=== PATIENT | male | born 1985 | race Caucasian/White ===

== ENCOUNTER 2019-05-15 12:25 | Inpatient (IN) | payer BC ==
[2019-05-15] MEDS ORDERED: SODIUM CHLORIDE 0.9% 1,000 ML IV STA (13:06)
--- NOTE | 2019-05-15 13:11 | ED ---
General Adult HPI - General Chief complaint: Chest Pain Stated complaint: Chest pain, weakness Time Seen by Provider: 05/15/19 12:45 Source: patient, RN notes reviewed, old records reviewed Mode of arrival: ambulatory Limitations: no limitations - History of Present Illness Initial comments: This is a 33-year-old male with past medical history significant for hyperthyroidism. Patient presents emergency department because last night at 11:00 he woke up and was having significant chest pain that made him nauseated and diaphoretic. Patient states it lasts 20 minutes and then subsided. Patient states it occurred every 2 hours until this morning. Patient states he never actually vomited but he felt like he was given vomit. Patient denies any fever chills or cough. Patient denies any headache patient denies lightheadedness or dizziness. Patient denies any symptoms currently. Patient did feel as though his heart was racing a little. Patient denies any swelling to the legs or any calf tenderness. Patient denies any back pain. Patient denies any radiation of the pain in his chest.Patient states she was somewhat short of breath when the pain is occurring - Related Data Home Medications Medication Instructions Recorded Confirmed Cholecalciferol [Vitamin D3 (25 1,000 unit PO DAILY 05/15/19 05/15/19 Mcg = 1000 Iu)] Ginkgo Biloba [place] Extract [Ginkgo] 60 mg PO DAILY 05/15/19 05/15/19 Insulin Aspart (For Pump) [NovoLOG 0.01 unit SQ-PUMP CONTINUOUS 05/15/19 05/15/19 (For Pump)] Methimazole 10 mg PO DAILY 05/15/19 05/15/19 [place]-3 Fatty Acids/Fish Oil [Fish 1 cap PO DAILY 05/15/19 05/15/19 Oil 1,000 mg Softgel] Allergies Allergy/AdvReac Type Severity Reaction Status Date / Time No Known Allergies Allergy Verified 05/15/19 14:09 Review of Systems ROS Statement: Those systems with pertinent positive or pertinent negative responses have been documented in the HPI. ROS Other: All systems not noted in ROS Statement are negative. Past Medical History Past Medical History: Diabetes Mellitus, Thyroid Disorder History of Any Multi-Drug Resistant Organisms: None Reported Past Surgical History: Orthopedic Surgery Additional Past Surgical History / Comment(s): hand Smoking Status: Current every day smoker Past Alcohol Use History: Rare Past Drug Use History: None Reported, Marijuana General Exam - General Exam Comments Initial Comments: GENERAL: Patient is well-developed and well-nourished. Patient is nontoxic and well- hydrated and is in mild distress. ENT: Neck is soft and supple. No significant lymphadenopathy is noted. Oropharynx is clear. Moist mucous membranes. Neck has full range of motion without eliciting any pain. EYES: The sclera were anicteric and conjunctiva were pink and moist. Extraocular movements were intact and pupils were equal round and reactive to light. Eyelids were unremarkable. PULMONARY: Unlabored respirations. Good breath sounds bilaterally. No audible rales rho nchi or wheezing was noted. CARDIOVASCULAR: Patient is tachycardic and regular about 120 beats a minute ABDOMEN: Soft and nontender with normal bowel sounds. No palpable organomegaly was noted. There is no palpable pulsatile mass. SKIN: Skin is clear with no lesions or rashes and otherwise unremarkable. NEUROLOGIC: Patient is alert and oriented x3. Cranial nerves II through XII are grossly intact. Motor and sensory are also intact. Normal speech, volume and content. Symmetrical smile. MUSCULOSKELETAL: Normal extremities with adequate strength and full range of motion. No lower extremity swelling or edema. No calf tenderness. LYMPHATICS: No significant lymphadenopathy is noted PSYCHIATRIC: Normal psychiatric evaluation. Limitations: no limitations Course Vital Signs 05/15/19 05/15/19 05/15/19 12:42 12:47 13:00 Temperature 98.9 F Pulse Rate 118 H 114 H 102 H Pulse Rate [ [employer] ] Respiratory 19 20 14 Rate Blood Pressure 158/64 158/64 O2 Sat by Pulse 97 96 97 Oximetry 05/15/19 05/15/19 05/15/19 13:23 13:30 14:00 Temperature Pulse Rate 105 H 102 H Pulse Rate [ 115 H [employer] ] Respiratory 20 16 Rate Blood Pressure 123/75 134/67 O2 Sat by Pulse 97 98 Oximetry Medical Decision Making - Medical Decision Making EKG shows sinus tachycardia at 117 bpm LA interval 122 QRS is 70 QT interval 322 QTC is 449. Patient's EKG shows no ST segment elevation or depression. Chest x-ray showed no acute abnormality. Patient's heart rate remained tachycardic. Patient's TSH was essentially 0 and patient's T4 was 3.95. I gave the patient propranolol. I spoke with Dr. Valadez he agreed to admit the patient admitted the patient wrote admitting orders. - Lab Data Result diagrams: 05/15/19 13:02 05/15/19 13:02 Lab Results 05/15/19 05/15/19 05/15/19 Range/Units 13:02 13:02 13:02 WBC 9.8 (3.8-10.6) k/uL RBC 4.35 (4.30-5.90) m/uL Hgb 13.3 (13.0-17.5) gm/dL Hct 39.6 (39.0-53.0) % MCV 91.1 (80.0-100.0) fL MCH 30.5 (25.0-35.0) pg MCHC 33.5 (31.0-37.0) g/dL RDW 12.8 (11.5-15.5) % Plt Count 169 (150-450) k/uL Neutrophils % 85 % Lymphocytes % 9 % Monocytes % 5 % Eosinophils % 0 % Basophils % 0 % Neutrophils # 8.2 H (1.3-7.7) k/uL Lymphocytes # 0.8 L (1.0-4.8) k/uL Monocytes # 0.5 (0-1.0) k/uL Eosinophils # 0.0 (0-0.7) k/uL Basophils # 0.0 (0-0.2) k/uL PT 10.4 (9.0-12.0) sec INR 1.0 (<1.2) APTT 25.9 (22.0-30.0) sec Sodium 135 L (137-145) mmol/L Potassium 4.6 (3.5-5.1) mmol/L Chloride 102 (98-107) mmol/L Carbon Dioxide 23 (22-30) mmol/L Anion Gap 10 mmol/L BUN 17 (9-20) mg/dL Creatinine 0.60 L (0.66-1.25) mg/dL Est GFR (CKD-EPI)AfAm >90 (>60 ml/min/1.73 sqM) Est GFR (CKD-EPI)NonAf >90 (>60 ml/min/1.73 sqM) Glucose 285 H (74-99) mg/dL Calcium 9.4 (8.4-10.2) mg/dL Magnesium 1.4 L (1.6-2.3) mg/dL Total Bilirubin 1.2 (0.2-1.3) mg/dL AST 25 (17-59) U/L ALT 31 (4-49) U/L Alkaline Phosphatase 100 (38-126) U/L Troponin I (0.000-0.034) ng/mL Total Protein 6.2 L (6.3-8.2) g/dL Albumin 3.5 (3.5-5.0) g/dL Amylase <30 L (30-110) U/L Lipase <10 L (23-300) U/L TSH <0.015 L (0.465-4.680) mIU/L Free T4 3.95 H (0.78-2.19) ng/dL 05/15/19 Range/Units 13:02 WBC (3.8-10.6) k/uL RBC (4.30-5.90) m/uL Hgb (13.0-17.5) gm/dL Hct (39.0-53.0) % MCV (80.0-100.0) fL MCH (25.0-35.0) pg MCHC (31.0-37.0) g/dL RDW (11.5-15.5) % Plt Count (150-450) k/uL Neutrophils % % Lymphocytes % % Monocytes % % Eosinophils % % Basophils % % Neutrophils # (1.3-7.7) k/uL Lymphocytes # (1.0-4.8) k/uL Monocytes # (0-1.0) k/uL Eosinophils # (0-0.7) k/uL Basophils # (0-0.2) k/uL PT (9.0-12.0) sec INR (<1.2) APTT (22.0-30.0) sec Sodium (137-145) mmol/L Potassium (3.5-5.1) mmol/L Chloride (98-107) mmol/L Carbon Dioxide (22-30) mmol/L Anion Gap mmol/L BUN (9-20) mg/dL Creatinine (0.66-1.25) mg/dL Est GFR (CKD-EPI)AfAm (>60 ml/min/1.73 sqM) Est GFR (CKD-EPI)NonAf (>60 ml/min/1.73 sqM) Glucose (74-99) mg/dL Calcium (8.4-10.2) mg/dL Magnesium (1.6-2.3) mg/dL Total Bilirubin (0.2-1.3) mg/dL AST (17-59) U/L ALT (4-49) U/L Alkaline Phosphatase (38-126) U/L Troponin I 0.012 (0.000-0.034) ng/mL Total Protein (6.3-8.2) g/dL Albumin (3.5-5.0) g/dL Amylase (30-110) U/L Lipase (23-300) U/L TSH (0.465-4.680) mIU/L Free T4 (0.78-2.19) ng/dL Critical Care Time Critical Care Time: Yes Total Critical Care Time: 35 Disposition Clinical Impression: Chest pain, Hyperthyroidism Disposition: ADMITTED IP TO THIS HOSP Referrals: Leonardo Valadez MD [Primary Care Provider] - 1-2 days Time of Disposition: 15:45
[2019-05-15 13:26] LABS: Basophils % (A) 0 %; Eosinophils % (A) 0 %; HCT 39.6 % (39.0-53.0); HGB 13.3 gm/dL (13.0-17.5); Lymphocytes # (A) 0.8 k/uL (1.0-4.8); Lymphocytes % (A) 9 %; MCH 30.5 pg (25.0-35.0); MCHC 33.5 g/dL (31.0-37.0); MCV 91.1 fL (80.0-100.0); Mean Platelet Volume 8.4; Monocytes # (A) 0.5 k/uL (0-1.0); Monocytes % (A) 5 %; Neutrophils # (A) 8.2 k/uL (1.3-7.7); Neutrophils % (A) 85 %; Platelet Count 169 k/uL (150-450); RBC 4.35 m/uL (4.30-5.90); RDW 12.8 % (11.5-15.5); WBC 9.8 k/uL (3.8-10.6)
[2019-05-15 13:36] LABS: Partial Thromboplastin Time 25.9 sec (22.0-30.0); Prothrombin Time 10.4 sec (9.0-12.0)
[2019-05-15 13:45] LABS: ALT 31 U/L (4-49); AST 25 U/L (17-59); African American GFR (CKD) >90 (>60 ml/min/1.73 sqM); Albumin 3.5 g/dL (3.5-5.0); Alkaline Phosphatase 100 U/L (38-126); Amylase <30 U/L (30-110); Anion Gap 10 mmol/L; Blood Urea Nitrogen 17 mg/dL (9-20); Calcium 9.4 mg/dL (8.4-10.2); Carbon Dioxide 23 mmol/L (22-30); Chloride 102 mmol/L (98-107); Glucose 285 mg/dL (74-99); Magnesium 1.4 mg/dL (1.6-2.3); Non-African American GFR(CKD) >90 (>60 ml/min/1.73 sqM); Potassium 4.6 mmol/L (3.5-5.1); Sodium 135 mmol/L (137-145); Total Bilirubin 1.2 mg/dL (0.2-1.3); Total Protein 6.2 g/dL (6.3-8.2)
[2019-05-15] MEDS ORDERED: MAGNESIUM SULFATE-D5W PMX 1 GM in DEXTROSE/WATER 1 100ML.BAG IVPB ONE (13:53)
--- NOTE | 2019-05-15 14:12 | XR ---
EXAMINATION TYPE: XR chest 2V DATE OF EXAM: 05/15/2019 COMPARISON: NONE HISTORY: Chest pain and shortness of breath TECHNIQUE: Frontal and lateral views of the chest are obtained. FINDINGS: There is no focal air space opacity, pleural effusion, or pneumothorax seen. The cardiac silhouette size is within normal limits. The osseous structures are intact. Minimal degenerative ch abisai of the thoracic spine. IMPRESSION: No acute cardiopulmonary process.
[2019-05-15 14:53] LABS: T4, Free (Free Thyroxine) 3.95 ng/dL (0.78-2.19)
[2019-05-15] MEDS ORDERED: PROPRANOLOL 1 MG/ML 1 ML VIAL IV STA (15:46)
[2019-05-15] MEDS ORDERED: ASPIRIN 81 MG PO STA (15:47)
[2019-05-15 16:04] LABS: Glucose,Whole Blood 274 mg/dL (75-99)
[2019-05-15] MEDS: NITROGLYCERIN OINT 1 INCH/GM PACKET TOPICAL SCH ×2 (16:30→23:55)
[2019-05-15 17:22] LABS: Glucose,Whole Blood 275 mg/dL (75-99)
[2019-05-15] MEDS ORDERED: INSULIN ASPART (NovoLOG) 100 UNIT/ML VIAL SQ SCH (17:30)
[2019-05-15 20:49] LABS: Glucose,Whole Blood 359 mg/dL (75-99)
[2019-05-15] MEDS ORDERED: INSULIN ASPART (NovoLOG) 100 UNIT/ML VIAL SQ PRN (20:57)
[2019-05-15] MEDS ORDERED: INSPUCOR MISCELLANE PRN (20:57)
[2019-05-15] MEDS ORDERED: INSULIN PUMP BASAL RATES 1 EACH MISC MISCELLANE PRN (20:57)
[2019-05-16 05:02] LABS: Cholesterol 92 mg/dL (<200); HDL Cholesterol 27 mg/dL (40-60); LDL Cholesterol,Calculated 46 mg/dL (0-99); Triglycerides 93 mg/dL (<150)
[2019-05-16] MEDS: NITROGLYCERIN OINT 1 INCH/GM PACKET TOPICAL SCH (06:36)
[2019-05-16 06:38] LABS: Glucose,Whole Blood 91 mg/dL (75-99)
--- NOTE | 2019-05-16 07:38 | P.CRDCN ---
History of Present Illness Consult date: 05/16/19 Chief complaint: Chest pain History of present illness: This is a very pleasant 33-year-old gentleman with a past medical history significant for diabetes and smoking presented to the emergency room complaining of chest discomfort. The patient was in his usual state of felt the last night when he woke up from sleep around 11:00 complaining of chest discomfort. The patient describes a discomfort in the mid of the chest, as sharp/dull, without any radiation to the arms or neck or shoulders, and without any associated symptoms. The symptoms lasted for about an hour. No fever or chills or cough and no abdominal discomfort or nausea or vomiting. He came into the emergency room where an EKG showed sinus rhythm with sinus tachycardia and he continues to be in sinus tachycardia. The troponin came in to be unremarkable. The chest x-ray did not show any acute abnormalities. The patient does have diabetes as well as history of smoking. No significant family history of coronary artery disease. At this point I'm going to obtain a d-dimer to rule out PE. If the d- dimer came in to be unremarkable I will schedule the patient to undergo a stress test. Beside that on examination he does have a systolic murmur which I'm going to perform an echocardiogram for further clarification. Past Medical History Past Medical History: Diabetes Mellitus, Thyroid Disorder Additional Past Medical History / Comment(s): IDDM type I with insulin pump, hyperthyroidism. History of Any Multi-Drug Resistant Organisms: None Reported Past Surgical History: Orthopedic Surgery Additional Past Surgical History / Comment(s): R hand Past Anesthesia/Blood Transfusion Reactions: No Reported Reaction Smoking Status: Current every day smoker - Past Family History Father Family Medical History: No Reported History Mother Family Medical History: No Reported History Medications and Allergies Home Medications Medication Instructions Recorded Confirmed Type Cholecalciferol [Vitamin D3 (25 1,000 unit PO DAILY 05/15/19 05/15/19 History Mcg = 1000 Iu)] Ginkgo Biloba [place] Extract [Ginkgo] 60 mg PO DAILY 05/15/19 05/15/19 History Insulin Aspart (For Pump) [NovoLOG 0.01 unit SQ-PUMP CONTINUOUS 05/15/19 05/15/19 History (For Pump)] Methimazole 10 mg PO DAILY 05/15/19 05/15/19 History [place]-3 Fatty Acids/Fish Oil [Fish 1 cap PO DAILY 05/15/19 05/15/19 History Oil 1,000 mg Softgel] Allergies Allergy/AdvReac Type Severity Reaction Status Date / Time No Known Allergies Allergy Verified 05/15/19 14:09 Physical Exam Vitals: Vital Signs Temp Pulse Pulse Resp BP BP Pulse Ox 05/16/19 04:00 98 F 98 16 119/58 95 05/16/19 00:00 98 F 90 138/74 96 05/15/19 20:00 98.6 F 96 18 130/67 95 05/15/19 17:15 98 F 105 H 18 114/58 98 05/15/19 17:02 98.9 F 108 H 18 135/64 97 05/15/19 17:01 108 H 18 135/64 05/15/19 16:30 108 H 18 135/64 05/15/19 16:00 103 H 20 133/74 97 05/15/19 15:30 109 H 16 130/64 98 05/15/19 15:00 107 H 22 125/66 96 05/15/19 14:30 100 20 136/73 98 05/15/19 14:00 102 H 16 134/67 98 05/15/19 13:30 105 H 20 123/75 97 05/15/19 13:23 115 H 05/15/19 13:00 102 H 14 158/64 97 05/15/19 12:47 98.9 F 114 H 20 158/64 96 05/15/19 12:42 118 H 19 97 Intake and Output 05/15/19 05/16/19 05/16/19 22:59 06:59 14:59 Intake Total 500 Balance 500 Intake: Oral 500 Other: Voiding Method Toilet Toilet # Voids 3 Weight 74.843 kg 75 kg - Constitutional General appearance: no acute distress - Respiratory Respiratory: bilateral: CTA - Cardiovascular Rhythm: regular Heart sounds: normal: S1, S2 Abnormal Heart Sounds: systolic murmur Results 05/15/19 13:02 05/15/19 13:02 Cardiac Enzymes 05/15/19 05/15/19 05/15/19 Range/Units 13:02 13:02 18:54 AST 25 (17-59) U/L Troponin I 0.012 <0.012 (0.000-0.034) ng/mL 05/16/19 Range/Units 00:42 AST (17-59) U/L Troponin I <0.012 (0.000-0.034) ng/mL Coagulation 05/15/19 Range/Units 13:02 PT 10.4 (9.0-12.0) sec APTT 25.9 (22.0-30.0) sec Lipids 05/16/19 Range/Units 04:11 Triglycerides 93 (<150) mg/dL Cholesterol 92 (<200) mg/dL HDL Cholesterol 27 L (40-60) mg/dL CBC 05/15/19 Range/Units 13:02 WBC 9.8 (3.8-10.6) k/uL RBC 4.35 (4.30-5.90) m/uL Hgb 13.3 (13.0-17.5) gm/dL Hct 39.6 (39.0-53.0) % Plt Count 169 (150-450) k/uL Comprehensive Metabolic Panel 05/15/19 Range/Units 13:02 Sodium 135 L (137-145) mmol/L Potassium 4.6 (3.5-5.1) mmol/L Chloride 102 (98-107) mmol/L Carbon Dioxide 23 (22-30) mmol/L BUN 17 (9-20) mg/dL Creatinine 0.60 L (0.66-1.25) mg/dL Glucose 285 H (74-99) mg/dL Calcium 9.4 (8.4-10.2) mg/dL AST 25 (17-59) U/L ALT 31 (4-49) U/L Alkaline Phosphatase 100 (38-126) U/L Total Protein 6.2 L (6.3-8.2) g/dL Albumin 3.5 (3.5-5.0) g/dL Current Medications Generic Name Dose Route Start Last Admin Trade Name Freq PRN Reason Stop Dose Admin Aspirin 325 mg 05/16/19 09:00 Aspirin PO DAILY DANIEL Insulin Aspart 0 unit 05/15/19 20:57 Novolog SQ DAILY PRN Insulin Pump Replacement Miscellaneous Information 1 each 05/15/19 20:57 Insulin Pump Basal Rates MISCELLANE Q6HR PRN Blood Sugar - High Protocol Miscellaneous Information 0 unit 05/15/19 20:57 Insulin Pump Correction Bolus MISCELLANE ACHS PRN Blood Sugar - High Protocol Nitroglycerin 1 inch 05/15/19 18:00 05/16/19 06:36 Nitro-Bid Oint TOPICAL 1 inch Q6HR DANIEL Administration Intake and Output 05/15/19 05/16/19 05/16/19 22:59 06:59 14:59 Intake Total 500 Balance 500 Intake: Oral 500 Other: Voiding Method Toilet Toilet # Voids 3 Weight 74.843 kg 75 kg 05/15/19 13:02 05/15/19 13:02 Assessment and Plan Assessment: Assessment #1 atypical chest discomfort #2 sinus tachycardia #3 history of diabetes #4 history of smoking Plan #1 acute coronary syndrome was ruled out #2 rule out PE #3 obtain an echocardiogram for further clarification of the heart murmur #4 follow-up with the patient
--- NOTE | 2019-05-16 08:56 | P.HPIM ---
History of Present Illness H&P Date: 05/16/19 Chief Complaint: Chest pressure This is a history and physical and 33-year-old white male with known history of hyperthyroidism and insulin dependent diabetes who has had some compliance issues due to lack of medication in the past. He states sudden onset of significant chest pressure with tachycardia. Evaluation showed significant hyperthyroidism with blood pressure element elevation with tachycardia. He is appropriately admitted to the ICU for stabilization. Appreciate cardiology consult. Consul endocrinology if possible. Otherwise we will restart his methimazole at a higher dose. Review of Systems Constitutional: Denies chills, Denies fever Eyes: denies blurred vision, denies pain Ears, nose, mouth and throat: Denies headache, Denies sore throat Cardiovascular: Reports chest pain, Reports rapid heart beat, Denies shortness of breath Respiratory: Denies cough Gastrointestinal: Denies abdominal pain, Denies diarrhea, Denies nausea, Denies vomiting Musculoskeletal: Denies myalgias Past Medical History Past Medical History: Diabetes Mellitus, Thyroid Disorder Additional Past Medical History / Comment(s): IDDM type I with insulin pump, hyperthyroidism. History of Any Multi-Drug Resistant Organisms: None Reported Past Surgical History: Orthopedic Surgery Additional Past Surgical History / Comment(s): R hand Past Anesthesia/Blood Transfusion Reactions: No Reported Reaction Smoking Status: Current every day smoker - Past Family History Father Family Medical History: No Reported History Mother Family Medical History: No Reported History Medications and Allergies Home Medications Medication Instructions Recorded Confirmed Type Cholecalciferol [Vitamin D3 (25 1,000 unit PO DAILY 05/15/19 05/15/19 History Mcg = 1000 Iu)] Ginkgo Biloba [place] Extract [Ginkgo] 60 mg PO DAILY 05/15/19 05/15/19 History Insulin Aspart (For Pump) [NovoLOG 0.01 unit SQ-PUMP CONTINUOUS 05/15/19 05/15/19 History (For Pump)] Methimazole 10 mg PO DAILY 05/15/19 05/15/19 History [place]-3 Fatty Acids/Fish Oil [Fish 1 cap PO DAILY 05/15/19 05/15/19 History Oil 1,000 mg Softgel] Allergies Allergy/AdvReac Type Severity Reaction Status Date / Time No Known Allergies Allergy Verified 05/15/19 14:09 Physical Exam Vitals: Vital Signs Temp Pulse Pulse Resp BP BP Pulse Ox 05/16/19 08:28 95 05/16/19 04:00 98 F 98 16 119/58 95 05/16/19 00:00 98 F 90 138/74 96 05/15/19 20:00 98.6 F 96 18 130/67 95 05/15/19 17:15 98 F 105 H 18 114/58 98 05/15/19 17:02 98.9 F 108 H 18 135/64 97 05/15/19 17:01 108 H 18 135/64 05/15/19 16:30 108 H 18 135/64 05/15/19 16:00 103 H 20 133/74 97 05/15/19 15:30 109 H 16 130/64 98 05/15/19 15:00 107 H 22 125/66 96 05/15/19 14:30 100 20 136/73 98 05/15/19 14:00 102 H 16 134/67 98 05/15/19 13:30 105 H 20 123/75 97 05/15/19 13:23 115 H 05/15/19 13:00 102 H 14 158/64 97 05/15/19 12:47 98.9 F 114 H 20 158/64 96 05/15/19 12:42 118 H 19 97 Intake and Output 05/15/19 05/16/19 05/16/19 22:59 06:59 14:59 Intake Total 500 Balance 500 Intake: Oral 500 Other: Voiding Method Toilet Toilet # Voids 3 Weight 74.843 kg 75 kg - Constitutional General appearance: no acute distress - EENT Eyes: EOMI - Neck Neck: no lymphadenopathy - Respiratory Respiratory: bilateral: CTA - Cardiovascular Rhythm: regular Heart sounds: normal: S1, S2 Abnormal Heart Sounds: no S3 Gallop - Gastrointestinal General gastrointestinal: soft, no tenderness - Musculoskeletal Musculoskeletal: gait normal Results CBC & Chem 7: 05/15/19 13:02 05/15/19 13:02 Labs: Abnormal Lab Results - Last 24 Hours (Table) 05/15/19 05/15/19 05/15/19 Range/Units 13:02 13:02 16:01 Neutrophils # 8.2 H (1.3-7.7) k/uL Lymphocytes # 0.8 L (1.0-4.8) k/uL D-Dimer (<0.60) mg/L FEU Sodium 135 L (137-145) mmol/L Creatinine 0.60 L (0.66-1.25) mg/dL Glucose 285 H (74-99) mg/dL POC Glucose (mg/dL) 274 H (75-99) mg/dL Magnesium 1.4 L (1.6-2.3) mg/dL Total Protein 6.2 L (6.3-8.2) g/dL HDL Cholesterol (40-60) mg/dL Amylase <30 L (30-110) U/L Lipase <10 L (23-300) U/L TSH <0.015 L (0.465-4.680) mIU/L Free T4 3.95 H (0.78-2.19) ng/dL 05/15/19 05/15/19 05/16/19 Range/Units 17:21 20:47 04:11 Neutrophils # (1.3-7.7) k/uL Lymphocytes # (1.0-4.8) k/uL D-Dimer (<0.60) mg/L FEU Sodium (137-145) mmol/L Creatinine (0.66-1.25) mg/dL Glucose (74-99) mg/dL POC Glucose (mg/dL) 275 H 359 H (75-99) mg/dL Magnesium (1.6-2.3) mg/dL Total Protein (6.3-8.2) g/dL HDL Cholesterol 27 L (40-60) mg/dL Amylase (30-110) U/L Lipase (23-300) U/L TSH (0.465-4.680) mIU/L Free T4 (0.78-2.19) ng/dL 05/16/19 Range/Units 07:10 Neutrophils # (1.3-7.7) k/uL Lymphocytes # (1.0-4.8) k/uL D-Dimer 0.73 H (<0.60) mg/L FEU Sodium (137-145) mmol/L Creatinine (0.66-1.25) mg/dL Glucose (74-99) mg/dL POC Glucose (mg/dL) (75-99) mg/dL Magnesium (1.6-2.3) mg/dL Total Protein (6.3-8.2) g/dL HDL Cholesterol (40-60) mg/dL Amylase (30-110) U/L Lipase (23-300) U/L TSH (0.465-4.680) mIU/L Free T4 (0.78-2.19) ng/dL Thrombosis Risk Factor Assmnt - Choose All That Apply Any of the Below Risk Factors Present?: No Other Risk Factors: No Other congenital or acquired thrombophilia - If yes, enter type in comment: No Thrombosis Risk Factor Assessment Level: Very Low Risk Assessment and Plan (1) Chest pain Current Visit: Yes Status: Acute Code(s): R07.9 - CHEST PAIN, UNSPECIFIED SNOMED Code(s): 44651014 (2) Hyperthyroidism Current Visit: Yes Status: Acute Code(s): E05.90 - THYROTOXICOSIS, UNSP WITH OUT THYROTOXIC CRISIS OR STORM SNOMED Code(s): 31631944 Plan: Stabilized with propranolol. Increase methimazole. Consult endocrinology. Check CBC and CMP in a.m. Appreciate cardiology input. See orders otherwise. I had a long discussion with the patient to consider ablation type treatment if this continues. 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 Otherwise, radioactive iodine uptake test should also be considered. Time with Patient: Greater than 30
[2019-05-16] MEDS ORDERED: METHIMAZOLE 10 MG PO SCH (09:00)
[2019-05-16] MEDS ORDERED: ASPIRIN 325 MG TAB PO SCH (09:00)
[2019-05-16] MEDS ORDERED: METHIMAZOLE 5 MG TAB PO SCH (09:00)
[2019-05-16] MEDS ORDERED: GINKGO BILOBA LEAF EXTRACT 60 MG PO SCH (09:00)
[2019-05-16] MEDS ORDERED: CHOLECALCIFEROL 1,000 UNIT TAB PO SCH (09:00)
[2019-05-16] MEDS ORDERED: NON FORMULARY DRUG (Omega-3 Fatty Acids/Fish Oil [Fish Oil 1,000 Mg Softgel] 1 CAP) PO SCH (09:00)
--- NOTE | 2019-05-16 09:17 | US ---
EXAMINATION TYPE: US thyroid st tissue head/neck DATE OF EXAM: 05/16/2019 COMPARISON: NONE CLINICAL HISTORY: hyperthyroidism. IC patient with abn thyroid labs GLAND SIZE: Right Lobe: 8.6 x 3.0 x 3.6 cm Overall Parenchyma: heterogenous Left Lobe: 8.1 x 2.6 x 3.3 cm Overall Parenchyma: heterogeneous Isthmus Thickness: 1.2 cm NODULES RIGHT: # of nodules measured on right: 0 LEFT: # of nodules measured on left: 0 ISTHMUS: # of nodules measured in the isthmus: 0 Bilateral neck scanned, no evidence of lymphadenopathy. Grossly enlarged gland bilaterally with no discrete nodules seen. IMPRESSION: Thyroid lobes are heterogenous and enlarged. No distinct nodules identified. Correlate with thyroid f unction testing.
--- NOTE | 2019-05-16 11:29 | NM ---
EXAMINATION TYPE: NM pul vent and perfuse DATE OF EXAM: 05/16/2019 COMPARISON: NONE HISTORY: Increased d-dimer, shortness of breath TECHNIQUE: Utilizing inhalation of 36.2 mCi Tc 99m DTPA aerosol and intravenous injection of 5.34 mC i of Tc 99m MAA, ventilation and perfusion images are acquired post injection in multiple projections . FINDINGS: Normal radiotracer distribution is noted in the lungs. There is no evidence of mismatched defects. IMPRESSION: Very low probability for pulmonary embolism.
--- NOTE | 2019-05-16 11:32 | ECHOF ---
Referral Reason:chest pain, tachycardia, poss. heart murmur MEASUREMENTS -------- HEIGHT: 182.9 cm WEIGHT: 75.7 kg BP: RVIDd: 3.6 cm (< 3.3) IVSd: 0.8 cm (0.6 - 1.1) LVIDd: 5.3 cm (3.9 - 5.3) LVPWd: 1.0 cm (0.6 - 1.1) IVSs: 1.1 cm LVIDs: 4.1 cm LVPWs: 1.3 cm LA Diam: 3.2 cm (2.7 - 3.8) Ao Diam: 2.7 cm (2.0 - 3.7) AV Cusp: 2.2 cm (1.5 - 2.6) MV EXCURSION: 28.243 mm (> 18.000) MV EF SLOPE: 130 mm/s (70 - 150) EPSS: 0.2 cm MV E Jay: 1.17 m/s MV DecT: 121 ms MV A Jay: 0.72 m/s MV E/A Ratio: 1.62 RAP: 5.00 mmHg RVSP: 27.81 mmHg FINDINGS -------- Sinus rhythm. This was a technically good study. LV size, wall thickness and systolic function are normal, with an EF greater than 55%. The left kiesha tricular size is normal. The diastolic filling pattern is normal for the age of the patient 6.52. The right ventricle is normal in size. The left atrial size is normal. Normal LA size by volume 22+/-6 ml/m2. The right atrial size is normal. The aortic valve is trileaflet, and appears structurally normal. No aortic stenosis or regurgitation. Mild mitral regurgitation is present. Mild tricuspid regurgitation present. Right ventricular systolic pressure is normal at < 35 mmHg. There is no evidence of pulmonary hypertension. There is no pulmonic regurgitation present. The aortic root size is normal. There is no pericardial effusion. CONCLUSIONS -------- 1. Sinus rhythm. 2. This was a technically good study. 3. LV size, wall thickness and systolic function are normal, with an EF greater than 55%. 4. The left ventricular size is normal. 5. The diastolic filling pattern is normal for the age of the patient 6.52 6. The right ventricle is normal in size. 7. The left atrial size is normal. 8. Normal LA size by volume 22+/-6 ml/m2. 9. The right atrial size is normal. 10. The aortic valve is trileaflet, and appears structurally normal. No aortic stenosis or regurgitat ion. 11. Mild mitral regurgitation is present. 12. Mild tricuspid regurgitation present. 13. Right ventricular systolic pressure is normal at < 35 mmHg. 14. There is no evidence of pulmonary hypertension. 15. There is no pulmonic regurgitation present. 16. The aortic root size is normal. 17. There is no pericardial effusion. DIGITAL MEDIA REPRESENTATIVE: Sue De Leon RDCS
[2019-05-16 11:53] LABS: Glucose,Whole Blood 154 mg/dL (75-99)
[2019-05-16] MEDS ORDERED: INSULIN PUMP TARGET GLUCOSE 1 EACH MISC MISCELLANE PRN (14:08)
[2019-05-16] MEDS ORDERED: INSULIN PUMP BASAL RATES 1 EACH MISC MISCELLANE PRN (14:08)
[2019-05-16] MEDS ORDERED: INSULIN ASPART (NovoLOG) 100 UNIT/ML VIAL SQ PRN (14:08)
[2019-05-16 16:53] LABS: Glucose,Whole Blood 89 mg/dL (75-99)
[2019-05-16 17:00] VITALS: BP 155/85; PULSE 93; RESP 18; TEMP 98
--- NOTE | 2019-05-16 17:03 | P.DS ---
Providers Date of admission: 05/15/19 15:47 Attending physician: Leonardo Valadez Consults: 05/15/19 15:47 Consult Physician Urgent Consulting Provider: [facility] Consult Reason/Comments: Chest pain Do you want consulting provider notified?: Yes Primary care physician: Leonardo Valadez - Discharge Diagnosis(es) (1) Chest pain Current Visit: Yes Status: Acute (2) Hyperthyroidism Current Visit: Yes Status: Acute Hospital Course: Patient admitted with CP and hyperthyroidism. beta chace started and cardiolgy was consulted. He has been cleared and we discussed possible ablation. US of thyroid is pending. We will DC to home and follow up in 2-3 days. Patient Condition at Discharge: Stable Plan - Discharge Summary Discharge Rx Participant: Yes New Discharge Prescriptions: New Methimazole [Tapazole] 10 mg PO BID #60 tab Continue Girdler-3 Fatty Acids/Fish Oil [Fish Oil 1,000 mg Softgel] 1 cap PO DAILY Methimazole 10 mg PO DAILY Insulin Aspart (For Pump) [NovoLOG (For Pump)] 0.01 unit SQ-PUMP CONTINUOUS Cholecalciferol [Vitamin D3 (25 Mcg = 1000 Iu)] 1,000 unit PO DAILY Ginkgo Biloba Nichols Extract [Ginkgo] 60 mg PO DAILY Discharge Medication List Cholecalciferol [Vitamin D3 (25 Mcg = 1000 Iu)] 1,000 unit PO DAILY 05/15/19 [History] Ginkgo Biloba Nichols Extract [Ginkgo] 60 mg PO DAILY 05/15/19 [History] Insulin Aspart (For Pump) [NovoLOG (For Pump)] 0.01 unit SQ-PUMP CONTINUOUS 05/15/19 [History] Methimazole 10 mg PO DAILY 05/15/19 [History] Girdler-3 Fatty Acids/Fish Oil [Fish Oil 1,000 mg Softgel] 1 cap PO DAILY 05/15/19 [History] Methimazole [Tapazole] 10 mg PO BID #60 tab 05/16/19 [Rx] Follow up Appointment(s)/Referral(s): Leonardo Valadez MD [Primary Care Provider] - 1-2 days Patient Instructions/Handouts: How to Stop Smoking (DC)
[2019-05-16] MEDS ORDERED: INSULIN PUMP MEAL BOLUS 1 UNIT MISC MISCELLANE SCH (17:30)
--- NOTE | 2019-05-17 17:45 | EST ---
EXERCISE STRESS AGE: 33 SEX: Male HT: 73 WT: 165 PROTOCOL: Luis STAGE: 4 DURATION OF EXERCISE: 10:00 HEART RATE REST: 107 BLOOD PRESSURE REST: 156/64 MAXIMUM HEART RATE ACHIEVED: 159 MAXIMUM BLOOD PRESSURE: 201/55 85% MPHR: 157 100% MPHR: 185 METS: 11.7 INDICATIONS: Chest pain. CLINICAL INFORMATION: Avila Mathias is a 33-year-old male patient with chest pain. Baseline heart rate 107 beats per minute. Baseline blood pressure 156/64 mmHg. Baseline 12-lead ECG shows normal sinus rhythm with normal cardiac intervals, normal ST segments. Patient exercised on a Luis protocol for 10 minutes, achieving a peak heart rate of 160 beats per minute. Hypertensive response to exercise noted. There was no ECG evidence for ischemia. No arrhythmias were noted. IMPRESSION: Good exercise capacity. No ECG evidence for ischemia. No arrhythmias. MMODL / IJN: [id number] /
== END 2019-05-16 18:01 | disposition home or self-care (01) | DRG 313 ==
LOC: EC 12:25 → 2SICU 15:47
PROVIDERS: ADMIT Family Medicine; ATTEND Family Medicine
DX: R07.89 Other chest pain (principal); R01.1 Cardiac murmur, unspecified; R00.0 Tachycardia, unspecified; E05.90 Thyrotoxicosis, unspecified without thyrotoxic crisis or storm; E10.9 Type 1 diabetes mellitus without complications; F17.200 Nicotine dependence, unspecified, uncomplicated; Z79.4 Long term (current) use of insulin; Z79.899 Other long term (current) drug therapy; Z96.41 Presence of insulin pump (external) (internal)
CPT/HCPCS: 36415; 71046; 76536; 78582; 80053; 80061; 82150; 83690; 83735; 84439; 84443; 84484; 85025; 85379; 85610; 85730; 93017; 93306; 96361; 96365; 96375; 99291

== ENCOUNTER → 2019-06-27 | Outpatient (CLI) | payer BC ==
[2019-06-27 15:26] LABS: African American GFR (CKD) 112.5 (60.0-200.0); Albumin 4.2 g/dL (3.80-4.90); Albumin/Globulin Ratio 1.75 (1.60-3.17); Anion Gap 9.1 mmol/L (4.00-12.00); Carbon Dioxide 30.9 mmol/L (21.6-31.8); Globulin 2.4 g/dL (1.6-3.3); Non-African American GFR(CKD) 97.1 (60.0-200.0); Potassium 4.2 mmol/L (3.5-5.5); Total Bilirubin 0.5 mg/dL (0.2-1.2); Total Protein 6.6 g/dL (6.2-8.2)
[2019-06-27 15:47] LABS: T4, Free (Free Thyroxine) 0.1 ng/dL (0.80-1.80)
[2019-06-27 19:52] LABS: Hemoglobin A1C 7.1 % (4.0-6.0)
== END | disposition home or self-care (01) ==
LOC: LABWHC1 10:14
PROVIDERS: ATTEND Internal Medicine Endocrinology, Diabetes & Metabolism
DX: E05.00 Thyrotoxicosis with diffuse goiter without thyrotoxic crisis or storm (principal); E10.65 Type 1 diabetes mellitus with hyperglycemia
CPT/HCPCS: 36415; 80053; 83036; 84439; 84443; 84480

== ENCOUNTER → 2019-08-22 | Outpatient (CLI) | payer BC | END | disposition home or self-care (01) | LOC: LABWHC1 13:00 | PROVIDERS: ATTEND Internal Medicine Endocrinology, Diabetes & Metabolism | DX: E05.00 Thyrotoxicosis with diffuse goiter without thyrotoxic crisis or storm (principal) | CPT/HCPCS: 36415; 84439; 84443; 84480 ==

== ENCOUNTER → 2021-04-11 | Outpatient (CLI) | payer BC ==
[2021-04-11 17:01] LABS: African American GFR (CKD) 108.3 (60.0-200.0); Albumin 4.4 g/dL (3.8-4.9); Albumin/Globulin Ratio 1.69 (1.60-3.17); Anion Gap 10.4 mmol/L (10.00-18.00); BUN/Creat Ratio 9.39 Ratio (12.00-20.00); Blood Urea Nitrogen 9.6 mg/dL (9.0-27.0); Carbon Dioxide 23.6 mmol/L (20.0-27.5); Globulin 2.6 g/dL (1.6-3.3); HDL Cholesterol 56.9 mg/dL (40.00-60.00); Non-African American GFR(CKD) 93.5 (60.0-200.0); Potassium 4.4 mmol/L (3.5-5.5); T4, Free (Free Thyroxine) 0.77 ng/dL (0.800-1.800); Total Bilirubin 0.4 mg/dL (0.30-1.20); Triglycerides 45.9 mg/dL (0.00-149.00)
[2021-04-11 17:19] LABS: Chol/HDL Ratio 2.39 Ratio; LDL Cholesterol,Direct Reflex 65.9 mg/dL (0.00-129.00)
[2021-04-11 21:02] LABS: Microalbumin Creatinine Ratio <30 mg/g Creat (0-30); Urine Creatinine 65.3 mg/dL (39.0-259.0)
== END | disposition home or self-care (01) ==
LOC: LABWHC1 09:11
PROVIDERS: ATTEND Internal Medicine Endocrinology, Diabetes & Metabolism
DX: E10.65 Type 1 diabetes mellitus with hyperglycemia (principal); E05.00 Thyrotoxicosis with diffuse goiter without thyrotoxic crisis or storm
CPT/HCPCS: 36415; 80053; 80061; 82043; 82570; 83036; 83721; 84439; 84443

== ENCOUNTER 2021-08-21 15:54 | Emergency (ER) | payer BC ==
[2021-08-21 16:14] VITALS: BP 154/76; PULSE 90; RESP 20; TEMP 98
[2021-08-21] MEDS ORDERED: SODIUM CHLORIDE 0.9% 2,000 ML IV STA (16:43)
[2021-08-21 17:23] LABS: Basophils % (A) 0 %; Eosinophils % (A) 0 %; HCT 51.5 % (39.0-53.0); HGB 16.5 gm/dL (13.0-17.5); Lymphocytes # (A) 1.1 k/uL (1.0-4.8); Lymphocytes % (A) 8 %; MCH 31.7 pg (25.0-35.0); MCHC 31.9 g/dL (31.0-37.0); MCV 99.1 fL (80.0-100.0); Mean Platelet Volume 7.5; Monocytes # (A) 0.5 k/uL (0-1.0); Monocytes % (A) 3 %; Neutrophils # (A) 11.9 k/uL (1.3-7.7); Neutrophils % (A) 88 %; Platelet Count 242 k/uL (150-450); RDW 13.6 % (11.5-15.5); WBC 13.6 k/uL (3.8-10.6)
[2021-08-21 17:37] LABS: ALT 24 U/L (4-49); AST 37 U/L (17-59); African American GFR (CKD) >90 (>60 ml/min/1.73 sqM); Albumin 4.9 g/dL (3.5-5.0); Alkaline Phosphatase 65 U/L (38-126); Anion Gap 7 mmol/L; Blood Urea Nitrogen 15 mg/dL (9-20); Carbon Dioxide 27 mmol/L (22-30); Chloride 106 mmol/L (98-107); Glucose 137 mg/dL (74-99); Non-African American GFR(CKD) >90 (>60 ml/min/1.73 sqM); Potassium 4.7 mmol/L (3.5-5.1); Sodium 140 mmol/L (137-145); Total Bilirubin 0.8 mg/dL (0.2-1.3); Total Protein 7.9 g/dL (6.3-8.2)
--- NOTE | 2021-08-21 18:09 | ED ---
Recheck HPI - General Chief Complaint: Recheck/Abnormal Lab/Rx Stated Complaint: Found Unresponsive @1300 Time Seen by Provider: 08/21/21 16:25 Source: patient Mode of arrival: ambulatory Limitations: no limitations - History of Present Illness Initial Comments: Patient is a 35-year-old male with a past medical history significant for type 1 diabetes on insulin pump who presents to the emergency department for evaluation of low blood sugar. Patient states he was camping and drinking a lot of liquor last night. Patient slept until late in the afternoon and states when his friends tried to wake him up patient was unresponsive. Patient had his eyes open but was not responding. The ambulance was called and his blood sugar was found to be 29. Patient was treated with repeat blood sugar at 190. Patient initially declined transport to the emergency department as he did not want to be evaluated but states he was nervous because an episode like this has never happened before with low blood sugar. Patient otherwise feels well. He denies fever, chills, respiratory symptoms, shortness of breath, chest pain, palpitations, abdominal pain, nausea, vomiting, and diarrhea. - Related Data Home Medications Medication Instructions Recorded Confirmed Insulin Aspart (For Pump) [NovoLOG 0.01 unit SQ-PUMP CONTINUOUS 05/15/19 08/21/21 (For Pump)] methIMAzole [Methimazole] 15 mg PO DAILY 05/15/19 08/21/21 Allergies Allergy/AdvReac Type Severity Reaction Status Date / Time No Known Allergies Allergy Verified 08/21/21 17:21 Review of Systems ROS Statement: Those systems with pertinent positive or pertinent negative responses have been documented in the HPI. ROS Other: All systems not noted in ROS Statement are negative. Past Medical History Past Medical History: Diabetes Mellitus, Thyroid Disorder Additional Past Medical History / Comment(s): IDDM type I with insulin pump, hyperthyroidism. History of Any Multi-Drug Resistant Organisms: None Reported Past Surgical History: Orthopedic Surgery Additional Past Surgical History / Comment(s): R hand Past Anesthesia/Blood Transfusion Reactions: No Reported Reaction Past Psychological History: No Psychological Hx Reported Past Alcohol Use History: Rare Past Drug Use History: Marijuana - Past Family History Father Family Medical History: No Reported History Mother Family Medical History: No Reported History General Exam Limitations: no limitations General appearance: alert, in no apparent distress Head exam: Present: atraumatic, normocephalic, normal inspection Eye exam: Present: normal appearance, PERRL, EOMI. Absent: scleral icterus, conjunctival injection, periorbital swelling Neck exam: Present: normal inspection, full ROM Respiratory exam: Present: normal lung sounds bilaterally. Absent: respiratory distress, wheezes, rales, rhonchi, stridor Cardiovascular Exam: Present: regular rate, normal rhythm, normal heart sounds. Absent: systolic murmur, diastolic murmur, rubs, gallop, clicks GI/Abdominal exam: Present: soft, normal bowel sounds. Absent: distended, tenderness, guarding, rebound, rigid Neurological exam: Present: alert, oriented X3, CN II-XII intact Expanded Patient oriented to: Present: person, place, time Cranial nerves: EOM's Intact: Normal, Tongue Deviation: Normal, Nystagmus: Normal, Facial Sensation: Normal, Facial Palsy with Forehead Movement: Normal, Facial Palsy without Forehead Movement: Normal Cerebellar function: Finger to Nose: Normal, Heel to Rojo: Normal Upper motor neuron: Sinan Neglect: Normal, Pronator Drift: Normal Sensory exam: Upper Extremity Light Touch: Normal, Lower Extremity Light Touch: Normal Motor strength exam: RUE: 5, LUE: 5, RLE: 5, LLE: 5 Psychiatric exam: Present: normal affect, normal mood Skin exam: Present: warm, dry, intact, normal color. Absent: rash Course Vital Signs 08/21/21 16:09 Temperature 98.0 F Pulse Rate 90 Respiratory 20 Rate Blood Pressure 154/76 O2 Sat by Pulse 98 Oximetry Medical Decision Making - Medical Decision Making This is a 35-year-old male type 1 diabetes on an insulin pump who presents for evaluation of hypoglycemic episode. Thorough history and examination were performed. Patient was unresponsive today while camping. Initial blood sugar was 29 with repeat at 190 after treatment. Patient looks and feels well. I will obtain laboratory studies and EKG. Laboratory studies are relatively unremarkable. Patient has mild leukocytosis at 13.6. EKG shows sinus rhythm. Results discussed with patient. Patient states he is COVID-19 last month. Currently denies any symptoms to suggest infection. Patient did eat beti crackers and Jell-O in the emergency department. Patient will be discharged with instruction to continue to monitor his blood sugar levels. Instructed to follow-up with his primary care provider in one to days. Patient states he is going back to his campsite. Return parameters discussed. He verbalizes understanding and is agreeable to this plan. Dr. Pruitt is my attending. - Lab Data Result diagrams: 08/21/21 17:03 08/21/21 17:03 Lab Results 08/21/21 08/21/21 Range/Units 17:03 17:03 WBC 13.6 H (3.8-10.6) k/uL RBC 5.20 (4.30-5.90) m/uL Hgb 16.5 (13.0-17.5) gm/dL Hct 51.5 (39.0-53.0) % MCV 99.1 (80.0-100.0) fL MCH 31.7 (25.0-35.0) pg MCHC 31.9 (31.0-37.0) g/dL RDW 13.6 (11.5-15.5) % Plt Count 242 (150-450) k/uL MPV 7.5 Neutrophils % 88 % Lymphocytes % 8 % Monocytes % 3 % Eosinophils % 0 % Basophils % 0 % Neutrophils # 11.9 H (1.3-7.7) k/uL Lymphocytes # 1.1 (1.0-4.8) k/uL Monocytes # 0.5 (0-1.0) k/uL Eosinophils # 0.0 (0-0.7) k/uL Basophils # 0.0 (0-0.2) k/uL Sodium 140 (137-145) mmol/L Potassium 4.7 (3.5-5.1) mmol/L Chloride 106 (98-107) mmol/L Carbon Dioxide 27 (22-30) mmol/L Anion Gap 7 mmol/L BUN 15 (9-20) mg/dL Creatinine 0.63 L (0.66-1.25) mg/dL Est GFR (CKD-EPI)AfAm >90 (>60 ml/min/1.73 sqM) Est GFR (CKD-EPI)NonAf >90 (>60 ml/min/1.73 sqM) Glucose 137 H (74-99) mg/dL Calcium 9.0 (8.4-10.2) mg/dL Total Bilirubin 0.8 (0.2-1.3) mg/dL AST 37 (17-59) U/L ALT 24 (4-49) U/L Alkaline Phosphatase 65 (38-126) U/L Total Protein 7.9 (6.3-8.2) g/dL Albumin 4.9 (3.5-5.0) g/dL - EKG Data EKG Comments: EKG taken at 17:09 Sinus rhythm Ventricular rate 86 [place] interval 144 QRS duration 86 QTC 405 Disposition Clinical Impression: Hypoglycemia Disposition: HOME SELF-CARE Condition: Good Instructions (If sedation given, give patient instructions): Hypoglycemia in a Person with Diabetes (ED) Additional Instructions: Please continue to monitor her blood sugar at home. Follow-up with primary care provider in one to 2 days. Return to the emergency department if you experience new, concerning, or worsening symptoms. Is patient prescribed a controlled substance at d/c from ED?: No Referrals: Leonardo Valadez MD [Primary Care Provider] - 1-2 days Time of Disposition: 18:09
== END 2021-08-21 18:40 | disposition home or self-care (01) ==
LOC: EC 15:54
DX: E16.2 Hypoglycemia, unspecified (principal)
CPT/HCPCS: 36415; 80053; 85025; 93005; 96360; 96361; 99283

== ENCOUNTER 2021-08-24 04:40 | Emergency (ER) | payer BC ==
[2021-08-24 04:48] VITALS: RESP 18
[2021-08-24 05:15] LABS: Basophils # (A) 0.1 k/uL (0-0.2); Basophils % (A) 1 %; Eosinophils # (A) 0.4 k/uL (0-0.7); Eosinophils % (A) 4 %; HGB 15.2 gm/dL (13.0-17.5); Lymphocytes # (A) 2.6 k/uL (1.0-4.8); Lymphocytes % (A) 27 %; MCH 31.2 pg (25.0-35.0); MCV 100.7 fL (80.0-100.0); Mean Platelet Volume 7.7; Monocytes # (A) 0.4 k/uL (0-1.0); Monocytes % (A) 4 %; Neutrophils # (A) 6.1 k/uL (1.3-7.7); Neutrophils % (A) 62 %; Platelet Count 191 k/uL (150-450); RBC 4.87 m/uL (4.30-5.90); RDW 13.1 % (11.5-15.5); WBC 9.9 k/uL (3.8-10.6)
--- NOTE | 2021-08-24 05:16 | ED ---
Recheck HPI - General Source: patient, RN notes reviewed, old records reviewed Mode of arrival: ambulatory Limitations: no limitations - History of Present Illness MD Complaint: wound re-check -: days(s) Returns Today for: persistent/worsening pain related to initial visit Symptoms Since Prior Visit: worsening pain, worsening swelling Context: planned re-check Associated Symptoms: none Treatments Prior to Arrival: other (none) <Wilfredo Jean - Last Filed: 08/24/21 05:36> <Pavel Forman - Last Filed: 08/24/21 08:15> - General Chief Complaint: Extremity Injury, Upper Stated Complaint: Right arm abscess Time Seen by Provider: 08/24/21 04:53 - History of Present Illness Initial Comments: This is a 36-year-old male who presents with significant right arm swelling and multiple different sites. Patient does admit to coming to the ER after being unresponsive to low blood sugar a few days ago he had multiple IVs started in his right forearm the pain and swelling in that arm have increased significantly since Tuesday. No warmth no fever. (Wilfredo Jean) - Related Data Home Medications Medication Instructions Recorded Confirmed Insulin Aspart (For Pump) [NovoLOG 0.01 unit SQ-PUMP CONTINUOUS 05/15/19 08/24/21 (For Pump)] methIMAzole [Methimazole] 15 mg PO DAILY 05/15/19 08/24/21 Allergies Allergy/AdvReac Type Severity Reaction Status Date / Time No Known Allergies Allergy Verified 08/24/21 07:29 Review of Systems ROS Other: All systems not noted in ROS Statement are negative. <Wilfredo Jean - Last Filed: 08/24/21 05:36> ROS Other: All systems not noted in ROS Statement are negative. <Pavel Forman - Last Filed: 08/24/21 08:15> ROS Statement: Those systems with pertinent positive or pertinent negative responses have been documented in the HPI. Past Medical History Past Medical History: Diabetes Mellitus, Thyroid Disorder Additional Past Medical History / Comment(s): IDDM type I with insulin pump, hyperthyroidism. History of Any Multi-Drug Resistant Organisms: None Reported Past Surgical History: Orthopedic Surgery Additional Past Surgical History / Comment(s): R hand Past Anesthesia/Blood Transfusion Reactions: No Reported Reaction Past Psychological History: No Psychological Hx Reported Smoking Status: Current every day smoker Past Alcohol Use History: Rare Past Drug Use History: Marijuana - Past Family History Father Family Medical History: No Reported History Mother Family Medical History: No Reported History <Wilfredo Jean - Last Filed: 08/24/21 05:36> General Exam General appearance: alert, in no apparent distress Head exam: Present: atraumatic, normocephalic, normal inspection Eye exam: Present: normal appearance, PERRL, EOMI. Absent: scleral icterus, c onjunctival injection, periorbital swelling ENT exam: Present: normal exam, mucous membranes moist Neck exam: Present: normal inspection. Absent: tenderness, meningismus, lymphadenopathy Respiratory exam: Present: normal lung sounds bilaterally. Absent: respiratory distress, wheezes, rales, rhonchi, stridor Cardiovascular Exam: Present: regular rate, normal rhythm, normal heart sounds. Absent: systolic murmur, diastolic murmur, rubs, gallop, clicks GI/Abdominal exam: Present: soft, normal bowel sounds. Absent: distended, tenderness, guarding, rebound, rigid Extremities exam: Present: tenderness, normal capillary refill, other (Good pulses right upper extremity, significant areas of swelling). Absent: pedal edema, joint swelling, calf tenderness Back exam: Present: normal inspection Neurological exam: Present: alert, oriented X3, CN II-XII intact Psychiatric exam: Present: normal affect, normal mood Skin exam: Present: warm, dry, intact, normal color. Absent: rash <Wilfredo Jean - Last Filed: 08/24/21 05:36> Course <Wilfredo Jean - Last Filed: 08/24/21 05:36> Vital Signs 08/24/21 08/24/21 08/24/21 04:41 05:58 07:25 Temperature 97.9 F 98.2 F 97.6 F Pulse Rate 83 77 71 Respiratory 18 18 18 Rate Blood Pressure 136/71 133/77 117/79 O2 Sat by Pulse 98 97 98 Oximetry - Reevaluation(s) Reevaluation #1: 08/24/21 05:37 Medical record is reviewed (Wilfredo Jean) Medical Decision Making - Lab Data Result diagrams: 08/24/21 04:58 <Wilfredo Jean - Last Filed: 08/24/21 05:36> - Lab Data Result diagrams: 08/24/21 04:58 08/24/21 04:58 <Pavel Forman - Last Filed: 08/24/21 08:15> - Medical Decision Making Patient is signed out to me pending results of ultrasound. Presents over concern for swelling in his right arm near the cephalic vein. Has had pain at that site. Recently was discharged from the hospital and had multiple IV sticks there. Presents over concern for possible infection as he is a diabetic. Laboratory studies showed no signs of acute infection. CRP was within normal limits. Patient was signed out to me pending results of ultrasound. Ultrasound revealed a thrombus in the cephalic vein. Based on the area where the swelling is at, this is distal and is not within 2 cm of a deep vein of the upper extremity. I did discuss with the patient that he has a superficial thrombophlebitis. Based on location, does not require anticoagulation per guidelines. Did recommend follow-up if the swelling gets worse or travels. Recommended NSAIDs as well as elevation as well as hot compresses. He was in agreement this plan. I did provide him with a work note. I instructed the patient to follow up with their PCP in the next 3 days. I explained that the patient should return to the emergency department if they experience any worsening symptoms. Strict return precautions were discussed with the patient. The patient expressed understanding of these instructions. I answered all questions that the patient had. The patient was discharged home in good condition with their prescriptions and follow up information. (Pavel Forman) - Lab Data Lab Results 08/24/21 08/24/21 Range/Units 04:58 04:58 WBC 9.9 (3.8-10.6) k/uL RBC 4.87 (4.30-5.90) m/uL Hgb 15.2 (13.0-17.5) gm/dL Hct 49.0 (39.0-53.0) % MCV 100.7 H (80.0-100.0) fL MCH 31.2 (25.0-35.0) pg MCHC 31.0 (31.0-37.0) g/dL RDW 13.1 (11.5-15.5) % Plt Count 191 (150-450) k/uL MPV 7.7 Neutrophils % 62 % Lymphocytes % 27 % Monocytes % 4 % Eosinophils % 4 % Basophils % 1 % Neutrophils # 6.1 (1.3-7.7) k/uL Lymphocytes # 2.6 (1.0-4.8) k/uL Monocytes # 0.4 (0-1.0) k/uL Eosinophils # 0.4 (0-0.7) k/uL Basophils # 0.1 (0-0.2) k/uL Sodium 138 (137-145) mmol/L Potassium 3.8 (3.5-5.1) mmol/L Chloride 106 (98-107) mmol/L Carbon Dioxide 26 (22-30) mmol/L Anion Gap 6 mmol/L BUN 11 (9-20) mg/dL Creatinine 0.83 (0.66-1.25) mg/dL Est GFR (CKD-EPI)AfAm >90 (>60 ml/min/1.73 sqM) Est GFR (CKD-EPI)NonAf >90 (>60 ml/min/1.73 sqM) Glucose 214 H (74-99) mg/dL Calcium 8.8 (8.4-10.2) mg/dL Phosphorus 3.2 (2.5-4.5) mg/dL Magnesium 1.8 (1.6-2.3) mg/dL Total Bilirubin 0.5 (0.2-1.3) mg/dL AST 25 (17-59) U/L ALT 19 (4-49) U/L Alkaline Phosphatase 89 (38-126) U/L C-Reactive Protein <0.5 (<1.0) mg/dL Total Protein 6.7 (6.3-8.2) g/dL Albumin 4.0 (3.5-5.0) g/dL Disposition <Wilfredo Jean - Last Filed: 08/24/21 05:36> Is patient prescribed a controlled substance at d/c from ED?: No Time of Disposition: 08:10 <Pavel Forman - Last Filed: 08/24/21 08:15> Clinical Impression: Superficial thrombophlebitis of arm Disposition: HOME SELF-CARE Condition: Good Instructions (If sedation given, give patient instructions): Superficial Thrombophlebitis (ED) Referrals: Leonardo Valadez MD [Primary Care Provider] - 1-2 days
[2021-08-24 05:37] LABS: ALT 19 U/L (4-49); AST 25 U/L (17-59); African American GFR (CKD) >90 (>60 ml/min/1.73 sqM); Alkaline Phosphatase 89 U/L (38-126); Anion Gap 6 mmol/L; Blood Urea Nitrogen 11 mg/dL (9-20); C Reactive Protein <0.5 mg/dL (<1.0); Calcium 8.8 mg/dL (8.4-10.2); Carbon Dioxide 26 mmol/L (22-30); Chloride 106 mmol/L (98-107); Glucose 214 mg/dL (74-99); Magnesium 1.8 mg/dL (1.6-2.3); Non-African American GFR(CKD) >90 (>60 ml/min/1.73 sqM); Phosphorus 3.2 mg/dL (2.5-4.5); Potassium 3.8 mmol/L (3.5-5.1); Sodium 138 mmol/L (137-145); Total Bilirubin 0.5 mg/dL (0.2-1.3); Total Protein 6.7 g/dL (6.3-8.2)
[2021-08-24 07:29] VITALS: BP 117/79; PULSE 71; TEMP 97.6
--- NOTE | 2021-08-24 07:38 | US ---
EXAMINATION TYPE: US extremity DATE OF EXAM: 08/24/2021 COMPARISON: NONE CLINICAL HISTORY: 36-year-old male arm pain and lump, DVT, abscess. TECHNIQUE: Targeted ultrasound at the patient's site of pain and palpable abnormality anterior right forearm. FINDINGS: Weld Engineer notes: At the palpable site, there is a superficial clot extending for approxim ately 15cm superior. IMPRESSION: Area of pain and lump along the anterior right forearm corresponds to a 15 cm long segment of SVT.
== END 2021-08-24 08:48 | disposition home or self-care (01) ==
LOC: EC 04:40
DX: I80.8 Phlebitis and thrombophlebitis of other sites (principal); F17.200 Nicotine dependence, unspecified, uncomplicated; E10.9 Type 1 diabetes mellitus without complications
CPT/HCPCS: 36415; 80053; 83735; 84100; 85025; 86140; 99284

== ENCOUNTER → 2021-10-21 | Outpatient (CLI) | payer BC ==
[2021-10-21 23:49] LABS: African American GFR (CKD) 120.1 (60.0-200.0); Albumin 4.4 g/dL (3.8-4.9); Albumin/Globulin Ratio 1.84 (1.60-3.17); Anion Gap 9.1 mmol/L (10.00-18.00); BUN/Creat Ratio 14.72 Ratio (12.00-20.00); Blood Urea Nitrogen 13.7 mg/dL (9.0-27.0); Calcium 9.2 mg/dL (8.7-10.3); Carbon Dioxide 27.2 mmol/L (20.0-27.5); Globulin 2.4 g/dL (1.6-3.3); Non-African American GFR(CKD) 103.6 (60.0-200.0); Potassium 4.1 mmol/L (3.5-5.5); T4, Free (Free Thyroxine) 0.58 ng/dL (0.800-1.800); Total Bilirubin 0.2 mg/dL (0.30-1.20); Total Protein 6.8 g/dL (6.2-8.2)
== END | disposition home or self-care (01) ==
LOC: LABWHC1 15:30
PROVIDERS: ATTEND Internal Medicine Endocrinology, Diabetes & Metabolism
DX: E10.65 Type 1 diabetes mellitus with hyperglycemia (principal); E05.00 Thyrotoxicosis with diffuse goiter without thyrotoxic crisis or storm
CPT/HCPCS: 36415; 80053; 83036; 84439; 84443

== ENCOUNTER → 2022-01-21 | Outpatient (CLI) | payer BC ==
--- NOTE | 2022-01-22 11:33 | NM ---
EXAMINATION TYPE: NM Thyroid Iodine Therapy Oral, hyperparathyroidism DATE OF EXAM: 01/21/2022 COMPARISON: None HISTORY: 36-year-old male E05.00, thyrotoxicosis with diffuse goiter. RADIOTRACER: 12.39 mCi I-131 capsule. Outpatient therapy. TECHNIQUE: Patient is on propranolol for symptomatic relief. Dose was prescribed (written directive) by an Authorized User in conjunction with treatment request b graham Lopez. Dr. Lopez decided on a dose based on clinical criteria. Risks, benefits, and potential complications of radioactive I-131 therapy were discussed in detail wi the patient by myself and the nuclear physics teacher. Verbal and written informed consent wer e obtained. Written instructions were given for radiation safety precautions to be observed for 7 days outpatient . Patient was specifically advised to avoid close contact with children, women, and other me mbers for public Dose was verified in dose caliber and patient was given oral I-131 pill under the supervision of me danish mak the nuclear physics teacher. There were no immediate complications. IMPRESSION: Outpatient 12.39 mCi I-131 oral therapy capsule for hyperthyroidism. The patient will follow-up with Dr. Lopez.
== END | disposition home or self-care (01) ==
LOC: RADNMMAIN 12:45
PROVIDERS: ATTEND Internal Medicine Endocrinology, Diabetes & Metabolism
DX: E05.00 Thyrotoxicosis with diffuse goiter without thyrotoxic crisis or storm (principal)
CPT/HCPCS: 79005; A9517

== ENCOUNTER → 2022-03-03 | Outpatient (CLI) | payer BC ==
[2022-03-04 01:55] LABS: T4, Free (Free Thyroxine) >7.770 ng/dL (0.800-1.800)
== END | disposition home or self-care (01) ==
LOC: LABWHC1 15:42
PROVIDERS: ATTEND Internal Medicine Endocrinology, Diabetes & Metabolism
DX: E10.65 Type 1 diabetes mellitus with hyperglycemia (principal); E05.00 Thyrotoxicosis with diffuse goiter without thyrotoxic crisis or storm
CPT/HCPCS: 36415; 84436; 84439; 84443; 84480

== ENCOUNTER → 2022-03-24 | Outpatient (CLI) | payer BC ==
[2022-03-24 19:37] LABS: ALT 20 U/L (10-49); AST 12 U/L (14-35); African American GFR (CKD) 87.5 (60.0-200.0); Albumin 3.9 g/dL (3.8-4.9); Albumin/Globulin Ratio 1.84 (1.60-3.17); Alkaline Phosphatase 82 U/L (41-126); BUN/Creat Ratio 10.25 Ratio (12.00-20.00); Blood Urea Nitrogen 12.4 mg/dL (9.0-27.0); Calcium 9.5 mg/dL (8.7-10.3); Carbon Dioxide 28.2 mmol/L (20.0-27.5); Chloride 105 mmol/L (96-109); Chol/HDL Ratio 2.53 Ratio; Globulin 2.1 g/dL (1.6-3.3); Glucose 123 mg/dL (70-110); LDL Cholesterol,Calculated 52.2 mg/dL (0.0-131.0); Non-African American GFR(CKD) 75.5 (60.0-200.0); Potassium 4.4 mmol/L (3.5-5.5); Sodium 143 mmol/L (135-145); Total Protein 6.1 g/dL (6.2-8.2)
== END | disposition home or self-care (01) ==
LOC: LABWHC1 14:44
PROVIDERS: ATTEND Internal Medicine Endocrinology, Diabetes & Metabolism
DX: E10.65 Type 1 diabetes mellitus with hyperglycemia (principal); E05.90 Thyrotoxicosis, unspecified without thyrotoxic crisis or storm
CPT/HCPCS: 36415; 80053; 80061; 84436; 84439; 84443; 84480

== ENCOUNTER → 2022-06-12 | Outpatient (CLI) | payer BC | END | disposition home or self-care (01) | LOC: LABWHC1 10:35 | PROVIDERS: ATTEND Internal Medicine Endocrinology, Diabetes & Metabolism | DX: E05.90 Thyrotoxicosis, unspecified without thyrotoxic crisis or storm (principal) | CPT/HCPCS: 36415; 84439; 84443; 84480 ==

== ENCOUNTER → 2022-07-20 | Outpatient (CLI) | payer BC | END | disposition home or self-care (01) | LOC: LABWHC1 15:48 | PROVIDERS: ATTEND Internal Medicine Endocrinology, Diabetes & Metabolism | DX: E05.90 Thyrotoxicosis, unspecified without thyrotoxic crisis or storm (principal) | CPT/HCPCS: 36415; 84439; 84443; 84480 ==

== ENCOUNTER → 2022-08-17 | Outpatient (CLI) | payer BC ==
[2022-08-17 15:11] LABS: HCT 47.5 % (39.6-50.0); HGB 15.8 g/dL (13.0-17.0); MCH 32.1 pg (27.0-32.0); MCHC 33.3 g/dL (32.0-37.0); MCV 96.5 fL (80.0-97.0); Mean Platelet Volume 10.4 fL (9.5-12.2); NRBC Per 100 WBC 0 /100 WBCS (0.0-0.0); Platelet Count 220 X 10*3/uL (140-440); RBC 4.92 X 10*6/uL (4.40-5.60); RDW 13.7 % (11.5-14.5)
[2022-08-17 22:59] LABS: T4, Free (Free Thyroxine) 0.37 ng/dL (0.800-1.800)
[2022-08-17 23:04] LABS: African American GFR (CKD) 112.3 (60.0-200.0); Blood Urea Nitrogen 14.3 mg/dL (9.0-27.0); Non-African American GFR(CKD) 96.9 (60.0-200.0)
== END | disposition home or self-care (01) ==
LOC: LABWHC1 12:31
PROVIDERS: ATTEND Internal Medicine Endocrinology, Diabetes & Metabolism
DX: E10.65 Type 1 diabetes mellitus with hyperglycemia (principal); E05.00 Thyrotoxicosis with diffuse goiter without thyrotoxic crisis or storm; E55.9 Vitamin D deficiency, unspecified; E10.69 Type 1 diabetes mellitus with other specified complication; E10.3299 Type 1 diabetes mellitus with mild nonproliferative diabetic retinopathy without macular edema, unspecified eye
CPT/HCPCS: 36415; 82565; 84439; 84443; 84450; 84460; 84481; 84520; 85027

== ENCOUNTER → 2022-10-20 | Outpatient (CLI) | payer OTHER ==
[2022-10-20 21:14] LABS: ALT 15 U/L (10-49); AST 18 U/L (14-35); T4, Free (Free Thyroxine) 1.02 ng/dL (0.80-1.80)
== END | disposition home or self-care (01) ==
LOC: LABWHC1 15:53
PROVIDERS: ATTEND Internal Medicine Endocrinology, Diabetes & Metabolism
DX: E10.65 Type 1 diabetes mellitus with hyperglycemia (principal); E05.00 Thyrotoxicosis with diffuse goiter without thyrotoxic crisis or storm; E10.3299 Type 1 diabetes mellitus with mild nonproliferative diabetic retinopathy without macular edema, unspecified eye
CPT/HCPCS: 36415; 84439; 84443; 84450; 84460

== ENCOUNTER → 2023-05-06 | Outpatient (CLI) | payer OTHER ==
[2023-05-07 03:08] LABS: T4, Free (Free Thyroxine) 0.19 ng/dL (0.80-1.80)
== END | disposition home or self-care (01) ==
LOC: LABWHC1 15:16
PROVIDERS: ATTEND Internal Medicine Endocrinology, Diabetes & Metabolism
DX: E10.3291 Type 1 diabetes mellitus with mild nonproliferative diabetic retinopathy without macular edema, right eye (principal); E10.65 Type 1 diabetes mellitus with hyperglycemia; E10.69 Type 1 diabetes mellitus with other specified complication; E05.00 Thyrotoxicosis with diffuse goiter without thyrotoxic crisis or storm
CPT/HCPCS: 36415; 84439; 84443

== ENCOUNTER → 2023-07-08 | Outpatient (CLI) | payer OTHER ==
[2023-07-08 16:28] LABS: Basophils # (A) 0.05 X 10*3/uL (0.00-0.10); Basophils % (A) 0.7 %; Eosinophils # (A) 0.15 X 10*3/uL (0.04-0.35); Eosinophils % (A) 2.2 %; HGB 13.8 g/dL (13.0-17.0); Lymphocytes # (A) 1.71 X 10*3/uL (0.90-5.00); Lymphocytes % (A) 25.6 %; MCH 32.8 pg (27.0-32.0); MCHC 33.7 g/dL (32.0-37.0); MCV 97.4 FL (80.0-97.0); Mean Platelet Volume 11.1 FL (9.5-12.2); Monocytes # (A) 0.31 X 10*3/uL (0.20-1.00); Monocytes % (A) 4.6 %; NRBC Per 100 WBC 0 X 10*3/uL (0.00-0.01); Neutrophils # (A) 4.44 X 10*3/uL (1.80-7.70); Neutrophils % (A) 66.8 %; Platelet Count 222 X 10*3/uL (140-440); RBC 4.21 X 10*6/uL (4.40-5.60); RDW 13.2 % (11.5-14.5); WBC 6.67 X 10*3/uL (4.50-10.00)
[2023-07-08 16:42] LABS: ALT 14 U/L (10-49); AST 14 U/L (14-35); Albumin 4.5 g/dL (3.8-4.9); Albumin/Globulin Ratio 1.88 Ratio (1.60-3.17); Alkaline Phosphatase 88 U/L (41-126); BUN/Creat Ratio 14.89 Ratio (12.00-20.00); Blood Urea Nitrogen 13.4 mg/dL (9.0-27.0); Calcium 9.3 mg/dL (8.7-10.3); Carbon Dioxide 27.7 mmol/L (21.6-31.8); Chloride 105 mmol/L (96-109); Globulin 2.4 g/dL (1.6-3.3); Glucose 191 mg/dL (70-110); Potassium 4.2 mmol/L (3.5-5.5); Sodium 142 mmol/L (135-145); Total Bilirubin 0.4 mg/dL (0.3-1.2); Total Protein 6.9 g/dL (6.2-8.2)
[2023-07-08 19:48] LABS: T4, Free (Free Thyroxine) 1.38 ng/dL (0.80-1.80)
== END | disposition home or self-care (01) ==
LOC: LABWHC1 10:54
PROVIDERS: ATTEND Family Medicine
DX: Z00.00 Encounter for general adult medical examination without abnormal findings (principal); Z13.220 Encounter for screening for lipoid disorders; E05.90 Thyrotoxicosis, unspecified without thyrotoxic crisis or storm; E10.65 Type 1 diabetes mellitus with hyperglycemia
CPT/HCPCS: 36415; 80053; 84439; 84443; 85025

== ENCOUNTER → 2023-07-29 | Outpatient (CLI) | payer OTHER | END | disposition home or self-care (01) | LOC: LABWHC1 14:26 | PROVIDERS: ATTEND Family Medicine | DX: R53.82 Chronic fatigue, unspecified (principal) | CPT/HCPCS: 36415; 84403 ==

== ENCOUNTER 2024-05-11 17:30 | Emergency (ER) | payer OTHER ==
[2024-05-11 17:50] VITALS: TEMP 98.2
[2024-05-11 19:46] LABS: Glucose,Whole Blood 51 mg/dL (70-110)
[2024-05-11 20:11] LABS: Basophils # (A) 0.1 k/uL (0-0.2); Basophils % (A) 1 %; Eosinophils # (A) 0.4 k/uL (0-0.7); Eosinophils % (A) 4 %; HGB 16.2 gm/dL (13.0-17.5); Lymphocytes # (A) 5.3 k/uL (1.0-4.8); Lymphocytes % (A) 43 %; MCH 33.3 pg (25.0-35.0); MCHC 33.7 g/dL (31.0-37.0); MCV 98.7 fL (80.0-100.0); Mean Platelet Volume 7.7; Monocytes # (A) 0.7 k/uL (0-1.0); Monocytes % (A) 6 %; Neutrophils # (A) 5.5 k/uL (1.3-7.7); Neutrophils % (A) 45 %; Platelet Count 237 k/uL (150-450); RBC 4.87 m/uL (4.30-5.90); RDW 12.5 % (11.5-15.5); WBC 12.3 k/uL (3.8-10.6)
[2024-05-11 20:14] LABS: Glucose,Whole Blood 121 mg/dL (70-110)
[2024-05-11 20:15] LABS: ALT 35 U/L (4-49); AST 32 U/L (17-59); African American GFR (CKD) >90 (>60 ml/min/1.73 sqM); Albumin 4.8 g/dL (3.5-5.0); Alkaline Phosphatase 96 U/L (38-126); Anion Gap 10 mmol/L; Blood Urea Nitrogen 17 mg/dL (9-20); Calcium 9.9 mg/dL (8.4-10.2); Carbon Dioxide 31 mmol/L (22-30); Chloride 99 mmol/L (98-107); Non-African American GFR(CKD) >90 (>60 ml/min/1.73 sqM); Potassium 3.8 mmol/L (3.5-5.1); Sodium 140 mmol/L (137-145); Total Bilirubin 0.7 mg/dL (0.2-1.3); Total Protein 7.8 g/dL (6.3-8.2)
[2024-05-11 20:17] LABS: Glucose 48 mg/dL (74-99)
--- NOTE | 2024-05-11 21:06 | CT ---
EXAMINATION TYPE: CT orbits w con DATE OF EXAM: 05/11/2024 8:43 PM COMPARISON: None. CLINICAL INDICATION: Male, 38 years old with history of L eye infection, L eye redness/swelling Told to come to ER by PCP for abx TECHNIQUE: Contrast used:iso 300 100mL mL of with IV Contrast, (none if empty) Oral contrast used: (none if empty) Axial images at 2 mm thick sections. Reconstructed images in the coronal and sagittal planes. FINDINGS: Mandible appears intact. Maxilla is intact. Temporomandibular junctions are normal. Tiny retention cy sts within the anterior medial right maxillary sinus. Ethmoid air cells on the left have mild mucosal thickening. Sphenoid sinuses remaining ethmoid air cells and frontal sinuses are clear. Bilateral co ncha bullosa are present No acute fractures are evident. Greater wings of the sphenoid are normal. Zy gomatic arches are normal. Soft tissue swelling is over the left cheek region. No underlying abscess is identified. No post sept al infection evident. Globes are symmetrical. Extraocular muscles appear normal. Optic nerves appear normal. IMPRESSION: 1. SOFT TISSUE INFECTION ALONG THE ANTERIOR LEFT INFRAORBITAL REGION. NO ABSCESS FORMATION OR POST SE PTAL INFECTION IDENTIFIED THIS TIME. [facility], , 05/11/2024 9:03 PM
[2024-05-11] MEDS: AMPICILLIN-SULBACTAM 3 GM in SODIUM CHLORIDE 0.9% 100 ML IVPB STA (21:58)
[2024-05-11 22:16] VITALS: BP 112/69; PULSE 63; RESP 20
--- NOTE | 2024-05-11 22:32 | ED ---
Eye Problem HPI - General Chief complaint: Eye Problems Stated complaint: left eye infection Time Seen by Provider: 05/11/24 18:23 Source: patient Mode of arrival: ambulatory Limitations: no limitations - History of Present Illness Initial comments: 38-year-old male with history of type 1 diabetes and Graves' disease presenting with chief complaint of redness and swelling surrounding the left eye. This has been ongoing for about 3 days. Patient was seen by his paid intern and he was later told to come to the ER for IV antibiotics. He is having no vision disturbances. No pain to the eyeball itself. Large stye to the lower eyelid with a pustule at the center. Patient states that for few weeks he has had difficulty with looking upwards, he has been following with his paid intern for this and it is likely attributed to his Graves' disease. No fever. No nausea or vomiting. No headache. - Related Data Home Medications Medication Instructions Recorded Confirmed Insulin Aspart (For Pump) [NovoLOG 0.01 unit SQ-PUMP CONTINUOUS 05/15/19 08/24/21 (For Pump)] methIMAzole [Methimazole] 15 mg PO DAILY 05/15/19 08/24/21 Previous Rx's Medication Instructions Recorded Cephalexin [Keflex] 500 mg PO Q6HR 7 Days #28 cap 05/11/24 Sulfamethox-Tmp 800-160Mg [Bactrim 1 tab PO Q12HR 7 Days #14 tab 05/11/24 DS 800-160 mg] Allergies Allergy/AdvReac Type Severity Reaction Status Date / Time No Known Allergies Allergy Verified 05/11/24 17:50 Review of Systems ROS Statement: Those systems with pertinent positive or pertinent negative responses have been documented in the HPI. ROS Other: All systems not noted in ROS Statement are negative. Past Medical History Past Medical History: Diabetes Mellitus, Thyroid Disorder Additional Past Medical History / Comment(s): IDDM type I with insulin pump, hyperthyroidism. History of Any Multi-Drug Resistant Organisms: None Reported Past Surgical History: Orthopedic Surgery Additional Past Surgical History / Comment(s): R hand Past Anesthesia/Blood Transfusion Reactions: No Reported Reaction Past Psychological History: No Psychological Hx Reported Smoking Status: Current every day smoker Past Alcohol Use History: Rare Past Drug Use History: Marijuana - Past Family History Father Family Medical History: No Reported History Mother Family Medical History: No Reported History General Exam Limitations: no limitations General appearance: alert, in no apparent distress Head exam: Present: atraumatic, normocephalic, normal inspection Eye exam: Present: periorbital swelling (Left-sided). Absent: EOMI (Patient cannot look upwards which he states has been ongoing issue he is following with his paid intern for) Expanded Eyelids: Normal Inspection: Right, Stye: Left Pupils: Regular, Round: Bilateral Sclera/Conjunctival: Normal Inspection: Bilateral Neck exam: Present: normal inspection. Absent: meningismus Respiratory exam: Absent: respiratory distress Cardiovascular Exam: Present: regular rate Neurological exam: Present: alert, oriented X3 Psychiatric exam: Present: normal affect, normal mood Skin exam: Present: warm, dry Course Vital Signs 05/11/24 05/11/24 17:46 22:11 Temperature 98.2 F Pulse Rate 86 63 Respiratory 18 20 Rate Blood Pressure 110/72 112/69 O2 Sat by Pulse 98 97 Oximetry Medical Decision Making - Medical Decision Making Was pt. sent in by a medical professional or institution (, PA, RESIDENT MANAGER, urgent care, hospital, or [place] [facility] facility...) When possible be specific @ -[employer] Operator Did you speak to anyone other than the patient for history (EMS, parent, family, police, friend...)? What history was obtained from this source @ -No Did you review nursing and triage notes (agree or disagree)? Why? @ -I reviewed and agree with nursing and triage notes Were old charts reviewed (outside hosp., previous admission, EMS record, old EKG, old radiological studies, urgent care reports/EKG's, [place] health care facility records)? Report findings @ -No old charts were reviewed Differential Diagnosis (chest pain, altered mental status, abdominal pain women, abdominal pain men, vaginal bleeding, weakness, fever, dyspnea, syncope, headache, dizziness, GI bleed, back pain, seizure, CVA, palpatations, mental health, musculoskeletal)? @ -Differential includes hordeolum, periorbital cellulitis, orbital cellulitis, abscess, not an all-inclusive list EKG interpreted by me (3pts min.). @ -As above X-rays interpreted by me (1pt min.). @ -None done CT interpreted by me (1pt min.). @ -CT shows soft tissue infection along the anterior left infraorbital region. No abscess formation or postseptal infection identified at this time U/S interpreted by me (1pt. min.). @ -None done What testing was considered but not performed or refused? (CT, X-rays, U/S, labs )? Why? @ -None What meds were considered but not given or refused? Why? @ -None Did you discuss the management of the patient with other professionals (professionals i.e. DrGarth, PA, RESIDENT MANAGER, lab, RT, psych nurse, psychosocial rehabilitation counselor, tool and die engineer, teacher, juvenile probation officer, case making machine operator)? Give summary @ -No Was smoking cessation discussed for >3mins.? @ -No Was critical care preformed (if so, how long)? @ -No Were there social determinants of health that impacted care today? How? (Homelessness, low income, unemployed, alcoholism, drug addiction, transportation, low edu. Level, literacy, decrease access to med. care, long term, rehab)? @ -No Was there de-escalation of care discussed even if they declined (Discuss DNR or withdrawal of care, Hospice)? DNR status @ -No What co-morbidities impacted this encounter? (DM, HTN, Smoking, COPD, CAD, Cancer, CVA, ARF, Chemo, Hep., AIDS, mental health diagnosis, sleep apnea, morbid obesity)? @ -None Was patient admitted / discharged? Hospital course, mention meds given and route, prescriptions, significant lab abnormalities, going to OR and other pertinent info. @ -38-year-old male presenting with chief complaint of redness swelling and tenderness surrounding the left eye. Was told by his paid intern to come in for IV antibiotics. On examination there appears to be a large stye and surrounding periorbital cellulitis. He does have difficulty with looking up when assessing extraocular motions, he states that this has been ongoing and he is following with his paid intern for this issue. White count of 12.3. Patient is initially hypoglycemic, he was given orange juice and on reassessment blood sugar has improved. He was treated with a single dose of Zosyn. He will be treated with Keflex and Bactrim outpatient. He will follow-up with his paid intern at his upcoming appointment next week. Follow-up with PCP. Report back to ER with any new or worsening symptoms. Discussed return parameters and answered all questions. Patient conveyed verbal understanding and agreed to the plan. I discussed this case in detail with my attending Dr. Olvera Undiagnosed new problem with uncertain prognosis? @ -No Drug Therapy requiring intensive monitoring for toxicity (Heparin, Nitro, Insulin, Cardizem)? @ -No Were any procedures done? @ -No Diagnosis/symptom? @ -Periorbital cellulitis, hordeolum Acute, or Chronic, or Acute on Chronic? @ -Acute Uncomplicated (without systemic symptoms) or Complicated (systemic symptoms)? @ -Uncomplicated Side effects of treatment? @ -No Exacerbation, Progression, or Severe Exacerbation? @ -No Poses a threat to life or bodily function? How? (Chest pain, [place], [place], pneumonia, PE, COPD, DKA, ARF, appy, cholecystitis, CVA, Diverticulitis, Homicidal, Suicidal, threat to staff... and all critical care pts) @ -Threat with any infection, low likelihood at this time - Lab Data Result diagrams: 05/11/24 19:49 05/11/24 19:49 Lab Results 05/11/24 05/11/24 05/11/24 Range/Units 19:45 19:49 19:49 WBC 12.3 H (3.8-10.6) k/uL RBC 4.87 (4.30-5.90) m/uL Hgb 16.2 (13.0-17.5) gm/dL Hct 48.0 (39.0-53.0) % MCV 98.7 (80.0-100.0) fL MCH 33.3 (25.0-35.0) pg MCHC 33.7 (31.0-37.0) g/dL RDW 12.5 (11.5-15.5) % Plt Count 237 (150-450) k/uL MPV 7.7 Neutrophils % 45 % Lymphocytes % 43 % Monocytes % 6 % Eosinophils % 4 % Basophils % 1 % Neutrophils # 5.5 (1.3-7.7) k/uL Lymphocytes # 5.3 H (1.0-4.8) k/uL Monocytes # 0.7 (0-1.0) k/uL Eosinophils # 0.4 (0-0.7) k/uL Basophils # 0.1 (0-0.2) k/uL Manual Slide Review Performed Sodium 140 (137-145) mmol/L Potassium 3.8 (3.5-5.1) mmol/L Chloride 99 (98-107) mmol/L Carbon Dioxide 31 H (22-30) mmol/L Anion Gap 10 mmol/L BUN 17 (9-20) mg/dL Creatinine 0.87 (0.66-1.25) mg/dL Est GFR (CKD-EPI)AfAm >90 (>60 ml/min/1.73 sqM) Est GFR (CKD-EPI)NonAf >90 (>60 ml/min/1.73 sqM) Glucose 48 L* (74-99) mg/dL POC Glucose (mg/dL) 51 L (70-110) mg/dL POC Glu Correctional Therapy Director ID Mak Gaspar Calcium 9.9 (8.4-10.2) mg/dL Total Bilirubin 0.7 (0.2-1.3) mg/dL AST 32 (17-59) U/L ALT 35 (4-49) U/L Alkaline Phosphatase 96 (38-126) U/L Total Protein 7.8 (6.3-8.2) g/dL Albumin 4.8 (3.5-5.0) g/dL 05/11/24 Range/Units 20:13 WBC (3.8-10.6) k/uL RBC (4.30-5.90) m/uL Hgb (13.0-17.5) gm/dL Hct (39.0-53.0) % MCV (80.0-100.0) fL MCH (25.0-35.0) pg MCHC (31.0-37.0) g/dL RDW (11.5-15.5) % Plt Count (150-450) k/uL MPV Neutrophils % % Lymphocytes % % Monocytes % % Eosinophils % % Basophils % % Neutrophils # (1.3-7.7) k/uL Lymphocytes # (1.0-4.8) k/uL Monocytes # (0-1.0) k/uL Eosinophils # (0-0.7) k/uL Basophils # (0-0.2) k/uL Manual Slide Review Sodium (137-145) mmol/L Potassium (3.5-5.1) mmol/L Chloride (98-107) mmol/L Carbon Dioxide (22-30) mmol/L Anion Gap mmol/L BUN (9-20) mg/dL Creatinine (0.66-1.25) mg/dL Est GFR (CKD-EPI)AfAm (>60 ml/min/1.73 sqM) Est GFR (CKD-EPI)NonAf (>60 ml/min/1.73 sqM) Glucose (74-99) mg/dL POC Glucose (mg/dL) 121 H (70-110) mg/dL POC Glu Correctional Therapy Director ID Mak Gaspar Calcium (8.4-10.2) mg/dL Total Bilirubin (0.2-1.3) mg/dL AST (17-59) U/L ALT (4-49) U/L Alkaline Phosphatase (38-126) U/L Total Protein (6.3-8.2) g/dL Albumin (3.5-5.0) g/dL Disposition Clinical Impression: Hordeolum, Preseptal cellulitis Disposition: HOME SELF-CARE Condition: Good Instructions (If sedation given, give patient instructions): Stye (ED), Periorbital Cellulitis in Adults (ED) Additional Instructions: Follow-up with your eye doctor. Report back to ER with any new or worsening symptoms. Take medication as prescribed. Prescriptions: Sulfamethox-Tmp 800-160Mg [Bactrim DS 800-160 mg] 1 tab PO Q12HR 7 Days #14 tab Cephalexin [Keflex] 500 mg PO Q6HR 7 Days #28 cap Is patient prescribed a controlled substance at d/c from ED?: No Referrals: Leonardo Valadez MD [Primary Care Provider] - 1-2 days Time of Disposition: 22:32
== END 2024-05-11 22:54 | disposition home or self-care (01) ==
LOC: EC 17:30
DX: L03.213 Periorbital cellulitis (principal); H00.015 Hordeolum externum left lower eyelid; E10.9 Type 1 diabetes mellitus without complications; Z79.4 Long term (current) use of insulin; F17.200 Nicotine dependence, unspecified, uncomplicated
CPT/HCPCS: 36415; 80053; 85025; 70481; 99284; 96365; J0295; Q9967

== ENCOUNTER → 2024-05-22 | Outpatient (CLI) | payer OTHER ==
[2024-05-22 18:30] LABS: T4, Free (Free Thyroxine) 1.06 ng/dL (0.80-1.80)
== END | disposition home or self-care (01) ==
LOC: LABWHC1 15:17
PROVIDERS: ATTEND Optometrist
DX: E05.00 Thyrotoxicosis with diffuse goiter without thyrotoxic crisis or storm (principal)
CPT/HCPCS: 36415; 84439; 84443; 84445; 84481

== ENCOUNTER → 2024-09-19 | Outpatient (CLI) | payer OTHER ==
[2024-09-20 01:53] LABS: Basophils # (A) 0.07 X 10*3/uL (0.00-0.10); Basophils % (A) 0.8 %; Eosinophils # (A) 0.30 X 10*3/uL (0.04-0.35); Eosinophils % (A) 3.5 %; HCT 44.1 % (39.6-50.0); HGB 14.4 g/dL (13.0-17.0); Immature Grans, Automated 0.20 %; Lymphocytes # (A) 2.43 X 10*3/uL (0.90-5.00); Lymphocytes % (A) 28.1 %; MCH 32.5 pg (27.0-32.0); MCHC 32.7 g/dL (32.0-37.0); MCV 99.5 FL (80.0-97.0); Monocytes # (A) 0.44 X 10*3/uL (0.20-1.00); Monocytes % (A) 5.1 %; NRBC Per 100 WBC 0 X 10*3/uL (0.00-0.01); Neutrophils # (A) 5.40 X 10*3/uL (1.80-7.70); Neutrophils % (A) 62.3 %; Platelet Count 230 X 10*3/uL (140-440); RBC 4.43 X 10*6/uL (4.40-5.60); RDW 12.8 % (11.5-14.5); WBC 8.66 X 10*3/uL (4.50-10.00)
[2024-09-20 02:25] LABS: T4, Free (Free Thyroxine) 0.93 ng/dL (0.80-1.80)
[2024-09-20 02:30] LABS: ALT 18 U/L (10-49); AST 25 U/L (14-35); Alkaline Phosphatase 69 U/L (41-126); Anion Gap 10.80 mmol/L (4.00-12.00); BUN/Creat Ratio 13.20 Ratio (12.00-20.00); Bilirubin,Unconjugated >0.10 mg/dL (0.20-1.00); Blood Urea Nitrogen 13.2 mg/dL (9.0-27.0); Calcium 9.0 mg/dL (8.7-10.3); Carbon Dioxide 26.2 mmol/L (21.6-31.8); Chloride 107 mmol/L (96-109); Glucose 117 mg/dL (70-110); Potassium 4.3 mmol/L (3.5-5.5); Sodium 144 mmol/L (135-145)
[2024-09-20 20:27] LABS: Thyroid Stim Immun Quant 2.75 IU/L (<0.10)
== END | disposition home or self-care (01) ==
LOC: LABWHC1 15:49
PROVIDERS: ATTEND Ophthalmology
DX: E05.90 Thyrotoxicosis, unspecified without thyrotoxic crisis or storm (principal); E05.00 Thyrotoxicosis with diffuse goiter without thyrotoxic crisis or storm; E55.9 Vitamin D deficiency, unspecified
CPT/HCPCS: 36415; 80048; 82248; 83036; 84075; 84255; 84439; 84443; 84445; 84450; 84460; 84481; 85025; 86376; 86800